=== PATIENT | female | born 1975 | race African-American/Black ===

== ENCOUNTER → 2016-12-21 13:10 | Emergency (ER) | payer OTHER ==
[~2016-12-21 13:10] MED LIST: ACETAMINOPHEN325 MG PO; BACTROBAN TOP; BACTROBAN15 GM TOP; DOXYCYCLINE HY100 M4 PO; HUMALOG100 U/M1 SUBQ; HUMALOG100 UNIT/2 SUBQ; HYDROCODON-ACE1 EAC7 PO; IMITREX50 MG PO; LANTUS100 U/ML SUBQ; MICONAZOLE28 GM TOP; SANTYL15 G1 TOP; ZOFRAN PO
== END | disposition home or self-care (01) ==
LOC: CED 13:10
DX: L50.9 Urticaria, unspecified (principal); L02.219 Cutaneous abscess of trunk, unspecified; E11.9 Type 2 diabetes mellitus without complications
CPT/HCPCS: 99282

== ENCOUNTER 2017-02-18 07:36 | Emergency (ER) | payer OTHER ==
[~2017-02-18 07:36] MED LIST changes: -BACTROBAN TOP; -BACTROBAN15 GM TOP; -HUMALOG100 UNIT/2 SUBQ; -IMITREX50 MG PO; -ZOFRAN PO
== END 2017-02-18 08:45 | disposition home or self-care (01) ==
LOC: CED 07:36
DX: S80.862A Insect bite (nonvenomous), left lower leg, initial encounter (principal); H66.90 Otitis media, unspecified, unspecified ear; E11.9 Type 2 diabetes mellitus without complications; Z79.4 Long term (current) use of insulin; Z88.2 Allergy status to sulfonamides; Z91.040 Latex allergy status; Z88.1 Allergy status to other antibiotic agents; W57.XXXA Bitten or stung by nonvenomous insect and other nonvenomous arthropods, initial encounter; Y92.9 Unspecified place or not applicable
CPT/HCPCS: 99283

== ENCOUNTER 2017-03-07 00:58 | Inpatient (IN) | payer OTHER ==
--- NOTE | ~2017-03-07 | DS ---
Unit #: [id number] #: [id number] Patient: SEN WELSH [id number] [address] [address] [id number] MR#: [id number] NAME: SEN WELSH ROOM: [facility] Age: 41 Sex: F Admission Date: 03/07/2017 : 1975 Discharge Date: 03/08/2017 Attending Physician: Karolyn Kwong M.D. Primary Care Physician: No Primary Care Physician DISCHARGE SUMMARY PRINCIPAL DIAGNOSES 1. Early diabetic ketoacidosis. 2. Diabetes mellitus type 1. Uncontrolled, with hemoglobin A1c of 13.4. 3. Migraine headache. 4. Pseudo hypernatremia, now resolved. 5. Intractable nausea and vomiting secondary to number one, now resolved. CONSULTANTS None. DIAGNOSTIC DATA IMAGING: KUB on 03/07/2017 without acute findings. CLINICAL HISTORY/HOSPITAL COURSE Ms. Welsh is a 41-year-old female with a history of diabetes mellitus, who presented to the emergency department with intractable nausea and vomiting after running out of Lantus. Please refer to history and physical for further details. Blood sugar upon presentation in the emergency department was greater than 600. She was also found to have mild anion gap, though she did not have any acidosis on ABG. The patient was subsequently admitted to the floor and started on subcutaneous insulin. After several extra doses of NovoLog and initiation of home dose of Lantus in the morning, the patient's blood sugars have improved. Blood work yesterday morning still revealed a very mild anion gap of 14. She is refusing blood work this morning, but sugars are now down in the 150 range. We will mildly increase her NovoLog with mealtime, continue her Lantus at home dose and she will follow up with her director of labor relations in two weeks as previously scheduled. This morning she is complaining of a headache behind both eyes and states she does struggle with migraine headaches intermittently. I am going to give her a single dose of Dilaudid and will follow up headache. If no improvement, will give a dose of Imitrex subcutaneously and/or p.o. She can be discharged home assuming headache is improved later today. DISCHARGE CONDITION Stable. DISPOSITION Discharge to home. Unit #: [id number] #: [id number] Patient: SEN WELSH DISCHARGE MEDICATIONS 1. Lantus 40 units subcutaneously b.i.d. 2. Humalog 12 units subcutaneously t.i.d. with meals. 3. Bactroban ointment to be applied to left ackerman for six days twice daily. DIET The patient is instructed to follow a CCD diet. She did receive diabetic education while hospitalized. She will continue her Accu-Cheks morning and evening at home. ACTIVITY She can increase her activity as tolerated. FOLLOWUP The patient will follow up with her director of labor relations the second week of March, as previously scheduled. Dictated by... Karolyn Kwong M.D. BALDOMERO/saroj TD: 03/10/2017 08:48 JOB #: [id number] DISCHARGE SUMMARY Page 1 of 1 X Karolyn Kwong MD X DISCHARGE SUMMARY
--- NOTE | ~2017-03-07 | EKG ---
PATIENT: WHITE, SEN UNIT #: [id number] Ventricular Rate: 108 BPM Atrial Rate: 108 BPM P-R Interval: 124 ms QRS Duration: 82 ms Q-T Interval: 368 ms QTC Calculation(Bezet): 493 ms P [place]: 53 degrees Calculated R [place]: 15 degrees Calculated T [place]: 27 degrees Diagnosis Line: Diagnosis Line: Sinus tachycardia Diagnosis Line: Possible Left atrial enlargement Diagnosis Line: Cannot rule out Septal infarct , age undetermined Diagnosis Line: Borderline ECG Diagnosis Line: No previous ECGs available Diagnosis Line: Confirmed by MASHA ADKINS MD ([id number]) on 03/08/2017 Diagnosis Line: 5:38:57 AM INTERPRETING MD: JED BUTTS
--- NOTE | ~2017-03-07 | CR2 ---
[facility] A Service of [facility] RADIOLOGY TEXT RESULTS PATIENT: SEN WELSH LOCATION: [facility]10-13 : [birth year] UNIT #: [id number] AGE: [address]: Karolyn Kwong MD SEX: F ORDER DR: [id number] [place], [place] [address] [id number] MR#: [id number] #: [id number] NAME: SEN WELSH : 1975 SEX: F STUDY DATE/TIME: 03/07/2017 3:24 UNIT: [facility] ROOM: [facility] STUDY DESCRIPTION: CR Abdomen Acute Series Attending Physician: Karolyn Kwong M.D. Ordering Physician: Indra Navarrete M.D. Primary Care Physician: Primary Care Physician No MEDICAL IMAGING REPORT This report is preliminary unless electronic signature is present EXAM Acute abdominal series INDICATION Shortness of air, generalized abdominal pain for the past 2 days. PROCEDURE Frontal view chest, supine upright views abdomen and pelvis. COMPARISON None. FINDINGS Heart size normal. No dense consolidation pleural fluid or pneumothorax. No free air. Nonobstructed bowel gas pattern. IMPRESSION No acute findings. Dictated by... Rowdy Mills M.D. THIS IS AN ELECTRONICALLY VERIFIED REPORT Rowdy Mills M.D. at 03/07/2017 10:00 PM EED/ortega TD: 03/07/2017 03:49 JOB #: [id number] MEDICAL IMAGING REPORT [facility] A Service of [facility] RADIOLOGY TEXT RESULTS PATIENT: SEN WELSH LOCATION: [facility]10-13 : [birth year] UNIT #: [id number] AGE: [address]: Karolyn Kwong MD SEX: F ORDER DR: Page 1 of 1 COPY
--- NOTE | ~2017-03-07 | A ---
[facility] Nutrition Therapy DATE: 03/07/17 Patient: SEN WELSH Physician: MANUEL Address: [address] [place] [address] [address] Room/Bed: [address] [place] [address], Zip: [place] [address] Admit Date: 03/07/17 Date of : [birth year] Height: 5 6 Weight: 155 70.74 NUTRITIONAL ASSESSMENT: REASON: Consult re: DM diet education 41 y/o female admitted for uncontrolled DM PMH: DM since age 29, asthma Anthropometrics: ht: 5'6" wt: 155# (70 kg), BMI: 25 Labs: serum glu: 666 (on admit), Cl- 99, Ca++ 8.3 Meds: novolog, protonix IV, reglan, NaCl, KCl I/O & Bowel function: 0/250 Skin Integrity: cellulitis/wound- LT lateral calf; scar- lower abd. Edema: LLE- trace Assessment: Chart reviewed, events noted. Pt admitted for uncontrolled DM. RD internal audit senior manager spoke to pt at bedside. Pt reports following a diabetic diet at home as best as she can. 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 RD internal audit senior manager provided written and vebal education regarding carbohydrate counting and gave examples of healthy meals. Pt reported understanding and no questions at this time. RD will remain available. Intervention: DM diet education Recommendations: 1. Pt would benefit from seeing an outpatient RD or attending classes at her local health department for follow up and accountability. Please consult RD for any further nutritional needs. Respectfully, MARYA CABRAL, internal review and audit compliance Asia Sherman RD, LD Food and Nutritional Services [facility] Nutrition Therapy DATE: 03/07/17 Patient: SEN WELSH Physician: MANUEL Address: [address] [place] [address] [address] Room/Bed: [address] [place] [address], Zip: [place] [address] Admit Date: 03/07/17 Date of : [birth year] Height: 5 6 Weight: 155 70.74 [facility] cc: client file
--- NOTE | ~2017-03-07 | HP ---
Unit #: [id number] #: [id number] Patient: SEN WELSH [id number] [address] [place], [place] [address] [id number] MR#: [id number] NAME: SEN WELSH ROOM: [address] Age: 41 Sex: F Admission Date: 03/07/2017 : 1975 Attending Physician: Iman Landers M.D. Primary Care Physician: No Primary Care Physician HISTORY AND PHYSICAL CHIEF COMPLAINT Uncontrolled insulin dependent diabetes mellitus with early diabetic ketoacidosis and intractable nausea and vomiting. HISTORY This pleasant 41-year-old female with IDDM since age 29, history of asthma, is admitted for uncontrolled diabetes mellitus. The patient ran out of her Lantus two to three days ago. Yesterday, developed intractable nausea and vomiting and did not take her usual Humalog. She presented to this emergency department early this morning where her fingerstick Accu-Chek read high but her serum glucose was 290. The BMP was recollected, and patient's serum glucose is actually 666. She has an anion gap of 14. In the ER, she was bolused with a liter of saline, given Zofran, Phenergan, Reglan, Protonix with some improvement. Also received 8 units of regular insulin IV, and I have asked that 10 units of NovoLog subcu be administered. PAST MEDICAL HISTORY 1. IDDM since age 29. 2. Asthma. 3. Insect bite requiring admission 12/2015 for cellulitis. 4. . 5. I and D of an abscess on the buttocks. ALLERGIES Sulfa, latex, clindamycin and Keflex. HOME MEDICATIONS 1. Lantus 40 units subcu b.i.d. 2. Humalog 10 units t.i.d. with meals. FAMILY HISTORY Diabetes mellitus. SOCIAL HISTORY The patient lives with her boyfriend and son. Stopped smoking ten years ago. Drinks occasional alcohol. REVIEW OF SYSTEMS Notable for nausea, vomiting, throat pain and chest discomfort, diabetes, asthma, above mentioned surgeries, recent insect bite left ackerman treated with doxycycline. Unit #: [id number] #: [id number] Patient: SEN WELSH PHYSICAL EXAMINATION GENERAL APPEARANCE: Pleasant 41-year-old female, who looks to be uncomfortable. VITAL SIGNS: Temperature 97.8, pulse 115, respirations 18, blood pressure 113/71. O2 saturation is 100% on room air. HEENT: Eyes PERRLA. Extraocular muscles are intact. Pharynx is benign. NECK: Supple without adenopathy or thyromegaly. CHEST: Clear. CARDIAC: Tachy S1 and S2 without murmur. ABDOMEN: Bowel sounds are present. No hepatosplenomegaly, tenderness or masses. EXTREMITIES: Without edema. Pedal pulses are present. No ulcers on the feet. There is a healing bite over the left ackerman. NEUROLOGIC EXAM: The patient is awake, alert, oriented. Cranial nerves are intact. Equal strength throughout. DIAGNOSTIC STUDIES LABORATORY: Admission labs - hematocrit is 48.5, normal white count and platelet count. SMA-12 - sodium 131 which actually corrects closer to 14. Chloride is 97, CO2 is 20 with an anion gap of 14. Alkaline phos. is 98. Normal lipase. BHOB 0.79. Beta hCG in the ER point of care was negative. ABG - pH 7.38, pCO2 37, pO2 87, O2 saturation 94.6% on room air. Urinalysis - positive glucose. IMAGING: Acute abdominal series - no acute disease. ASSESSMENT 1. Uncontrolled insulin dependent diabetes mellitus with early diabetic ketoacidosis: Anion gap is 14. 2. Intractable nausea and vomiting. 3. Pseudohyponatremia. PLANS 1. IV fluids, insulin, obtain q.2 hour Accu-Cheks for now. Will ask for repeat labs early this morning and, if not improving, will switch to an insulin drip. 2. Obtain EKG and cardiac enzymes. 3. Proton pump inhibitor, Reglan and Zofran. 4. SCDs for DVT prophylaxis. Dictated by Nita Medina/marilu TD: 03/07/2017 05:18 JOB #: [id number] Unit #: [id number] #: [id number] Patient: WHITE,SEN HISTORY AND PHYSICAL Page 1 of 1 X Iman Landers MD X HISTORY AND PHYSICAL
[2017-03-07 01:58] LABS: ARTERIAL BLD GAS O2 SATURATION 94.6 % (90.0-100.0); ARTERIAL BLOOD GAS CARBOXY HB 1.3 %sat (0.0-9.0); ARTERIAL BLOOD GAS HCO3 22.5 mmol/L; ARTERIAL BLOOD GAS MET HB 0.7 %sat (0.0-2.0); ARTERIAL BLOOD GAS PCO2 37.7 mmHg (35.0-45.0); ARTERIAL BLOOD GAS PO2 87.1 mmHg (80.0-100); ARTERIAL BLOOD GAS pH 7.384 (7.350-7.450)
[2017-03-07 01:59] LABS: ARTERIAL BLOOD GAS ART SITE LEFT BRACHIAL; ARTERIAL DRAW? YES
[2017-03-07 02:14] LABS: BASOPHIL# 0.1 X10e3 (0-0.3); BASOPHIL% 0.8 % (0-2.5); DIFF IND NO; EOSINOPHIL% 0.5 % (0.0-7.0); HEMATOCRIT 48.5 % (35.0-45.0); HEMOGLOBIN 15.2 gm/dL (12.0-16.0); LYMPHOCYTE# 2.4 X10e3 (1.0-3.5); LYMPHOCYTE% 29.3 % (17.0-45.0); MEAN CELL VOLUME 93.4 FL (83-96); MEAN CORPUSCULAR HEMOGLOBIN 29.2 PG (28-34); MEAN CORPUSCULAR HGB CONC 31.3 g/dL (30-36); MEAN PLATELET VOLUME 10.6 FL (6.5-11.5); MONOCYTE# 0.5 X10e3 (0-1.0); MONOCYTE% 6.3 % (3.0-12.0); NEUTROPHIL# 5.1 X10e3 (1.5-7.1); NEUTROPHIL% 63.1 % (40-75); PLATELET COUNT 227 X10e3 (140-420); RED BLOOD COUNT 5.19 X10e (3.90-5.30); WHITE BLOOD COUNT 8.1 X10e3 (4.0-10.5)
[2017-03-07] MEDS ORDERED: LANTUS100 U/ML SUBQ (02:35)
[2017-03-07] MEDS ORDERED: HUMALOG100 UNIT/2 SUBQ (02:35)
[2017-03-07 03:02] LABS: URINE SOURCE CLEAN CATCH
[2017-03-07 03:06] LABS: URINE APPEARANCE CLEAR; URINE BILIRUBIN NEG (NEG); URINE BLOOD NEG (NEG); URINE COLOR YELLOW; URINE GLUCOSE >1000 MG/DL (NEG); URINE KETONE 1+ (NEG); URINE LEUKOCYTE ESTERASE NEG (NEG); URINE NITRATE NEG (NEG); URINE PROTEIN NEG (NEG); URINE SPECIFIC GRAVITY 1.038 (1.003-1.035); URINE UROBILINOGEN 0.2 MG/DL (NEG)
[2017-03-07 03:09] LABS: CULTURE INDICATED? NO
[2017-03-07 03:13] LABS: ALBUMIN SERUM 3.9 g/dL (3.5-5.0); BETA HYDROXYBUTYRATE 0.79 MMOL/L (0.02-0.27); BILIRUBIN, DIRECT 0.1 mg/dL (0.0-0.2); BILIRUBIN,INDIRECT 0.4 mg/dL (0.0-0.9); BILIRUBIN,TOTAL 0.5 mg/dL (0.2-2.0); BUN/CREATININE RATIO 15.45; CALCIUM SERUM 8.9 mg/dL (8.4-10.2); CREATININE SERUM 1.1 mg/dL (0.6-1.4); GLOM FILT RATE Estimated 72.8 mL/min (>60); POTASSIUM 3.9 mmol/L (3.5-5.1)
[2017-03-07 04:04] LABS: BUN/CREATININE RATIO 18.88; CALCIUM SERUM 8.9 mg/dL (8.4-10.2); CREATININE SERUM 0.9 mg/dL (0.6-1.4); GLOM FILT RATE Estimated 92.8 mL/min (>60); POTASSIUM 4.2 mmol/L (3.5-5.1)
[2017-03-07 11:23] LABS: BUN/CREATININE RATIO 16.66; CALCIUM SERUM 8.3 mg/dL (8.4-10.2); CREATININE SERUM 0.9 mg/dL (0.6-1.4); GLOM FILT RATE Estimated 92.8 mL/min (>60); POTASSIUM 4.4 mmol/L (3.5-5.1)
[2017-03-07 11:46] LABS: %MB 4.4 % (0.0-4.0); MB 4.4 ng/ml
[2017-03-08] MEDS ORDERED: BACTROBAN15 GM TOP (11:03)
[2017-03-08] MEDS ORDERED: ZOFRAN PO (18:51)
== END 2017-03-08 20:00 | disposition home or self-care (01) | DRG 638 ==
LOC: CED 00:58 → CEDOF 05:00 → C5B 05:03 → CEDOF 05:03 → CED 05:03 → CEDOF 06:04 → C5B 06:04
PROVIDERS: Emergency Medicine
PROC: 05HA33Z Insertion of Infusion Device into Left Brachial Vein, Percutaneous Approach (ICD-10-PCS; principal; 2017-03-07)
DX: E10.10 Type 1 diabetes mellitus with ketoacidosis without coma (principal); E87.1 Hypo-osmolality and hyponatremia; Z79.4 Long term (current) use of insulin; J45.909 Unspecified asthma, uncomplicated; Z91.19 Patient's noncompliance with other medical treatment and regimen; Z87.891 Personal history of nicotine dependence; Z88.1 Allergy status to other antibiotic agents; Z88.2 Allergy status to sulfonamides; Z91.040 Latex allergy status; Z83.3 Family history of diabetes mellitus
CPT/HCPCS: 36415; 36600; 74022; 80048; 80076; 81003; 82010; 82550; 82553; 82803; 82947; 83036; 83690; 84484; 84703; 85025; 93005; 96361; 96374; 96375; 99285; C9113; J1170; J1815; J2405; J2550; J2765

== ENCOUNTER 2017-03-11 23:38 | Inpatient (IN) | payer OTHER ==
--- NOTE | ~2017-03-11 | EKG ---
PATIENT: SEN WELSH UNIT #: [id number] Ventricular Rate: 120 BPM Atrial Rate: 120 BPM P-R Interval: 130 ms QRS Duration: 78 ms Q-T Interval: 352 ms QTC Calculation(Bezet): 497 ms P [place]: 63 degrees Calculated R [place]: 32 degrees Calculated T [place]: 39 degrees Diagnosis Line: Sinus tachycardia Diagnosis Line: Otherwise normal ECG Diagnosis Line: When compared with ECG of 07-MAR-2017 05:18, Diagnosis Line: Criteria for Septal infarct are no longer Present Diagnosis Line: Nonspecific T wave abnormality no longer evident Diagnosis Line: in Lateral leads Diagnosis Line: Confirmed by GLO TAYLOR MD ([id number]) on Diagnosis Line: 03/14/2017 11:04:57 AM INTERPRETING MD: CLAUDIA BUTTS
--- NOTE | ~2017-03-11 | DS ---
Unit #: [id number] #: [id number] Patient: SEN WELSH [id number] [address] [address] [id number] I MR#: [id number] NAME: SEN WELSH ROOM: 47 Age: 41 Sex: F Admission Date: 03/12/2017 : 1975 Discharge Date: 03/14/2017 Attending Physician: Barrett Schilling M.D. Primary Care Physician: No Primary Care Physician DISCHARGE SUMMARY PRIMARY DIAGNOSIS Diabetic ketoacidosis. SECONDARY DIAGNOSES 1. Metabolic acidosis secondary to the primary diagnosis. 2. Pseudohyponatremia secondary to the primary diagnosis. 3. Acute migraine headache. 4. Hypophosphatemia. 5. Hypokalemia. HOSPITAL COURSE Patient was admitted with diabetic ketoacidosis which the patient reports is due to the fact that she did not have needles for Lantus SoloSTAR that she was prescribed on March 08. She reports trying multiple times to get access to the necessary needles to give herself the injections but was unable to obtain them and ultimately ended up back in the emergency room late in the evening of March 11. She was admitted to the ICU and started on a DKA drip. Electrolytes were adjusted. The patient did have an acute migraine and was treated with some IV morphine here in the hospital. The patient did have some mild hypoglycemia on the morning of discharge at a level of 52 when she was receiving 40 units of Levemir twice a day. I have adjusted her home doses slightly downward to try to avoid hypoglycemia at home. The patient already has plans to follow up with her station worker in one week. DISCHARGE DISPOSITION To home. DISCHARGE STATUS Stable. DISCHARGE ACTIVITY Ad declan. DISCHARGE DIET A strict diabetic diet. DISCHARGE FOLLOWUP With her primary care physician, Dr. Ace, in two to four weeks, follow up with her regular station worker in one to two weeks. A script has been written for the needles for her Lantus SoloSTAR and I have discussed with Care Management making sure these are obtained prior Unit #: [id number] #: [id number] Patient: SEN WELSH to the patient leaving the hospital and to double check that there are no other issues that would impede the patient's ability to comply with the medical regimen at discharge. DISCHARGE MEDICATIONS 1. Humalog 15 units subcu a.c. meals. 2. Lantus SoloSTAR 35 units subcu twice daily. 3. Bactroban ointment b.i.d. to left ackerman for two additional days. 4. Imitrex 50 mg p.o. daily p.r.n. for migraine. Dictated by... Nita Luna/robin TD: 03/16/2017 07:44 JOB #: [id number] DISCHARGE SUMMARY Page 1 of 1 X Barrett Schilling MD X DISCHARGE SUMMARY
--- NOTE | ~2017-03-11 | HP ---
Unit #: [id number] #: [id number] Patient: SEN WELSH [id number] [facility] [address] [facility]. [place], [place] [address] [id number] I MR#: [id number] NAME: SEN WELSH ROOM: [address] Age: 41 Sex: F Admission Date: 03/12/2017 : 1975 Attending Physician: Muna Messina M.D. Primary Care Physician: No Primary Care Physician HISTORY AND PHYSICAL CHIEF COMPLAINT Vomiting. HISTORY OF PRESENT ILLNESS This is a 41-year-old with type 1 diabetes, admitting because of vomiting. The patient was recently discharged on 03/08/2017 for the same reason. She was found to have diabetic ketoacidosis and got treated for it. According to her, she went home but she did not have needles for her pen, so she did not take her insulin. She tried to reach the physician, but she could not reach her family physician. Currently she is complaining of nausea, vomiting and abdominal pain, generalized, 4 of 10. No radiation. Relieved after morphine. No fever. No chills. No constipation or diarrhea. No dizziness. No passing out. PAST MEDICAL HISTORY 1. History of diabetes mellitus type 1 with recent diabetic ketoacidosis. Discharged a few days ago from [facility]. 2. Migraine headache. 3. History of asthma. 4. (1)____ infection. 5. Incision and drainage of abscess on the buttocks. SOCIAL HISTORY The patient lives with boyfriend and son. Stopped smoking 10 years ago. Drinks occasionally. No illicit drugs. ALLERGIES Sulfa, latex, clindamycin and Keflex. CURRENT HOME MEDICATIONS 1. Lantus 40 units subcutaneous b.i.d. 2. Humalog 12 units t.i.d. with meals. 3. Bactroban applied topically b.i.d. 4. Zofran 4 mg p.o. q.6 h. p.r.n. nausea. REVIEW OF SYSTEMS No headache currently. No visual changes. No skin rash. No leg swelling. Reviewed 12 point systems with her, which are negative except as per history of present illness. PHYSICAL EXAMINATION GENERAL: The patient is a 41-year-old lying in bed, not in acute distress. Able to provide history. Unit #: [id number] #: [id number] Patient: WHITESEN VITALS: Temperature 98.2, pulse 116, respiratory rate 16, blood pressure 105/66. HEENT: Alert and oriented times three. Pupils equally reactive to light and accommodation. Dry mucosa present. NECK: Supple. LUNGS: Clear to auscultation. No crackles or rhonchi. HEART: S1 and S2 heard. Tachycardia present. No murmurs. ABDOMEN: Soft. Bowel sounds are present. Nontender. No hepatosplenomegaly. EXTREMITIES: No pedal edema. SKIN: No new rash. NEUROLOGIC: Nonfocal. DIAGNOSTIC STUDIES LABORATORY: Glucose 235. ABG, pH 7.30, carbon dioxide 28, oxygen 95. Urine drug screen positive for marijuana. Urinalysis shows glucose greater than 1000, ketones 3+. White blood cell count 12.5, hemoglobin 14.6, platelets 222, sodium 131, potassium 4.5, creatinine 0.9, beta hydroxybutyrate 7.24. CARDIOVASCULAR: EKG shows sinus tachycardia. ASSESSMENT/PLAN The patient is a 41-year-old admitted because of vomiting secondary to diabetic ketoacidosis. 1. Diabetic ketoacidosis secondary to noncompliance with her insulin. The patient will be admitted to the ICU with insulin protocol, insulin drip, Accu-Cheks q.1 h. and IV fluids. Monitor closely. Electrolytes and BMP q.4 h. 2. Metabolic acidosis secondary to diabetic ketoacidosis. Continue with IV fluids and insulin. 3. Pseudohyponatremia secondary to diabetic ketoacidosis. Continue with fluids and monitor. 4. History of migraine headaches, stable. 5. The patient has some issues with her insulin pen. I am going to ask case picker to take care of her medication needs. 6. DVT prophylaxis with bilateral SCDs. GI prophylaxis with Protonix 40 mg IV daily. Dictated by Nita Sánchez TD: 03/12/2017 11:37 JOB #: [id number] Unit #: [id number] #: [id number] Patient: SEN WELSH HISTORY AND PHYSICAL Page 1 of 1 X Muna Messina MD X HISTORY AND PHYSICAL
[~2017-03-11 23:38] MED LIST changes: +BACTROBAN15 GM TOP; +HUMALOG100 UNIT/2 SUBQ; +ZOFRAN PO
[2017-03-12 00:34] LABS: ARTERIAL BLD GAS O2 SATURATION 95.6 % (90.0-100.0); ARTERIAL BLOOD GAS CARBOXY HB 0.6 %sat (0.0-9.0); ARTERIAL BLOOD GAS HCO3 14.3 mmol/L; ARTERIAL BLOOD GAS MET HB 0.7 %sat (0.0-2.0); ARTERIAL BLOOD GAS PCO2 28.9 mmHg (35.0-45.0); ARTERIAL BLOOD GAS PO2 95.5 mmHg (80.0-100); ARTERIAL BLOOD GAS pH 7.302 (7.350-7.450)
[2017-03-12 00:35] LABS: ARTERIAL BLOOD GAS ALLEN TEST NORMAL; ARTERIAL BLOOD GAS ART SITE RIGHT RADIAL; ARTERIAL DRAW? YES
[2017-03-12 02:36] LABS: URINE SOURCE CLEAN CATCH
[2017-03-12 02:41] LABS: URINE APPEARANCE CLEAR; URINE BILIRUBIN NEG (NEG); URINE BLOOD NEG (NEG); URINE COLOR YELLOW; URINE GLUCOSE >1000 MG/DL (NEG); URINE KETONE 3+ (NEG); URINE LEUKOCYTE ESTERASE NEG (NEG); URINE NITRATE NEG (NEG); URINE PH 5.5 (5-8); URINE PROTEIN NEG (NEG); URINE SPECIFIC GRAVITY 1.036 (1.003-1.035); URINE UROBILINOGEN 0.2 MG/DL (NEG)
[2017-03-12 02:51] LABS: AMPHETAMINE NEG (NEG); BARBITURATES NEG (NEG); BENZODIAZEPINES NEG (NEG); COCAINE NEG (NEG); MARIJUANA POS (NEG); OPIATES NEG (NEG); TRICYCLIC ANTIDEPRESSANTS NEG (NEG); U METHADONE NEG (NEG)
[2017-03-12 03:02] LABS: CULTURE INDICATED? NO
[2017-03-12 04:02] LABS: BASOPHIL# 0.1 X10e3 (0-0.3); BASOPHIL% 0.4 % (0-2.5); HEMATOCRIT 46.7 % (35.0-45.0); HEMOGLOBIN 14.6 gm/dL (12.0-16.0); LYMPHOCYTE# 2.3 X10e3 (1.0-3.5); MEAN CELL VOLUME 92.8 FL (83-96); MEAN CORPUSCULAR HGB CONC 31.3 g/dL (30-36); MEAN PLATELET VOLUME 10.4 FL (6.5-11.5); MONOCYTE# 0.4 X10e3 (0-1.0); MONOCYTE% 3.3 % (3.0-12.0); NEUTROPHIL# 9.8 X10e3 (1.5-7.1); NEUTROPHIL% 78.3 % (40-75); PLATELET COUNT 222 X10e3 (140-420); RED BLOOD COUNT 5.04 X10e (3.90-5.30); RED CELL DISTRIBUTION WIDTH 12.2 % (11.0-15.5); WHITE BLOOD COUNT 12.5 X10e3 (4.0-10.5)
[2017-03-12 04:07] LABS: DIFF IND NO
[2017-03-12 04:28] LABS: ALBUMIN SERUM 4.1 g/dL (3.5-5.0); ALKALINE PHOSPHATASE 96 U/L (32-92); ALT (SGPT) 28 U/L (10-40); AMYLASE 14 U/L (0-46); AST (SGOT) 22 U/L (10-42); BETA HYDROXYBUTYRATE 7.24 MMOL/L (0.02-0.27); BILIRUBIN,TOTAL 1.5 mg/dL (0.2-2.0); BLOOD UREA NITROGEN 13 mg/dL (9-23); BUN/CREATININE RATIO 14.44; CALCIUM SERUM 8.4 mg/dL (8.4-10.2); CARBON DIOXIDE 11 mmol/L (22-31); CHLORIDE 102 mmol/L (100-111); CREATININE SERUM 0.9 mg/dL (0.6-1.4); GLOM FILT RATE Estimated 92.8 mL/min (>60); LIPASE 13 U/L (22-51); POTASSIUM 4.5 mmol/L (3.5-5.1); PROTEIN TOTAL SERUM 8.1 g/dL (6.0-8.3); SODIUM 131 mmol/L (135-145)
[2017-03-12 04:32] LABS: BILIRUBIN, DIRECT <0.1 mg/dL (0.0-0.2); BILIRUBIN,INDIRECT 1.4 mg/dL (0.0-0.9); GLUCOSE FASTING 588 mg/dL (70-110)
[2017-03-12 08:47] LABS: CALCIUM SERUM 8.2 mg/dL (8.4-10.2); GLOM FILT RATE Estimated 81.6 mL/min (>60); POTASSIUM 4.6 mmol/L (3.5-5.1)
[2017-03-12 12:54] LABS: BUN/CREATININE RATIO 21.66; CALCIUM SERUM 7.8 mg/dL (8.4-10.2); CREATININE SERUM 0.6 mg/dL (0.6-1.4); GLOM FILT RATE Estimated 132.1 mL/min (>60); POTASSIUM 4.4 mmol/L (3.5-5.1)
[2017-03-12 20:55] LABS: CALCIUM SERUM 7.7 mg/dL (8.4-10.2); CREATININE SERUM 0.6 mg/dL (0.6-1.4); GLOM FILT RATE Estimated 132.1 mL/min (>60); POTASSIUM 4.3 mmol/L (3.5-5.1)
[2017-03-13 05:09] LABS: HEMATOCRIT 36.2 % (35.0-45.0); HEMOGLOBIN 11.7 gm/dL (12.0-16.0); MEAN CORPUSCULAR HGB CONC 32.4 g/dL (30-36); RED BLOOD COUNT 4.05 X10e (3.90-5.30); WHITE BLOOD COUNT 8.8 X10e3 (4.0-10.5)
[2017-03-13 05:10] LABS: MEAN CELL VOLUME 89.4 FL (83-96)
[2017-03-13 05:45] LABS: CALCIUM SERUM 7.6 mg/dL (8.4-10.2); CREATININE SERUM 0.5 mg/dL (0.6-1.4); GLOM FILT RATE Estimated 140.3 mL/min (>60); MAGNESIUM 1.7 mg/dL (1.6-3.0); POTASSIUM 3.2 mmol/L (3.5-5.1)
[2017-03-13 05:46] LABS: PHOSPHOROUS 0.9 mg/dL (2.5-4.6)
[2017-03-14 03:14] LABS: BASOPHIL% 0.6 % (0-2.5); EOSINOPHIL# 0.1 X10e3 (0-0.7); EOSINOPHIL% 0.8 % (0.0-7.0); HEMATOCRIT 37.4 % (35.0-45.0); HEMOGLOBIN 12.1 gm/dL (12.0-16.0); LYMPHOCYTE# 3.2 X10e3 (1.0-3.5); LYMPHOCYTE% 44.3 % (17.0-45.0); MEAN CELL VOLUME 89.7 FL (83-96); MEAN CORPUSCULAR HGB CONC 32.3 g/dL (30-36); MEAN PLATELET VOLUME 10.5 FL (6.5-11.5); MONOCYTE# 0.5 X10e3 (0-1.0); MONOCYTE% 6.7 % (3.0-12.0); NEUTROPHIL# 3.5 X10e3 (1.5-7.1); NEUTROPHIL% 47.6 % (40-75); PLATELET COUNT 179 X10e3 (140-420); RED BLOOD COUNT 4.17 X10e (3.90-5.30); RED CELL DISTRIBUTION WIDTH 12.2 % (11.0-15.5); WHITE BLOOD COUNT 7.3 X10e3 (4.0-10.5)
[2017-03-14 03:18] LABS: DIFF IND NO
[2017-03-14 03:28] LABS: BILIRUBIN,TOTAL 0.2 mg/dL (0.2-2.0); BUN/CREATININE RATIO 12.5; CALCIUM SERUM 7.8 mg/dL (8.4-10.2); CREATININE SERUM 0.4 mg/dL (0.6-1.4); MAGNESIUM 1.6 mg/dL (1.6-3.0); PHOSPHOROUS 2.1 mg/dL (2.5-4.6); POTASSIUM 3.1 mmol/L (3.5-5.1); PROTEIN TOTAL SERUM 6.1 g/dL (6.0-8.3)
[2017-03-14] MEDS ORDERED: IMITREX50 MG PO (15:06)
[2017-03-14] MEDS ORDERED: BACTROBAN TOP (15:09)
== END 2017-03-14 18:16 | disposition home or self-care (01) | DRG 638 ==
LOC: CED 23:38 → CEDOF 03-12 03:20 → CED 03-12 03:43 → CEDOF 03-12 06:22 → CICCU2 03-12 17:09 → CEDOF 03-12 17:09 → C4C 03-13 15:35
PROVIDERS: Internal Medicine; Student in an Organized Health Care Education/Training Program
DX: E10.10 Type 1 diabetes mellitus with ketoacidosis without coma (principal); E87.1 Hypo-osmolality and hyponatremia; E10.649 Type 1 diabetes mellitus with hypoglycemia without coma; Z79.4 Long term (current) use of insulin; G43.909 Migraine, unspecified, not intractable, without status migrainosus; E83.39 Other disorders of phosphorus metabolism; E87.6 Hypokalemia; E83.42 Hypomagnesemia; Z88.2 Allergy status to sulfonamides; Z88.1 Allergy status to other antibiotic agents; Z91.040 Latex allergy status; Z91.14 Patient's other noncompliance with medication regimen
CPT/HCPCS: 36600; 80048; 80053; 80076; 80307; 81003; 82010; 82150; 82803; 82947; 83036; 83690; 83735; 84100; 84703; 85025; 85027; 87040; 93005; 96361; 96374; 96375; 99291; C9113; J1815; J2270; J2405; J2550